=== PATIENT | female | born 1985 | race Caucasian/White ===

== ENCOUNTER 2016-09-02 11:34 | Inpatient (IN) | payer OTHER ==
[~2016-09-02] VITALS: Ht 167.6 cm; Wt 133.7 kg
--- NOTE | 2016-09-03 07:17 | HP ---
ADMIT: 09/02/2016 RM/LOC: 625 [facility] MR#: [id number] [address] [facility] [address] [place], [place] [id number] [address] [place] [address] History and Physical SEX: F AGE: 30 : 1985 DATE OF SERVICE: CHIEF COMPLAINT: Abdominal pain. HISTORY OF PRESENT ILLNESS: A 30-year-old female, who is recently from [place]. She is here at [place], [place], visiting her mother. Leticia developed pain around 4 p.m. on September 01 in the upper abdomen, lower sternal area. She thought initially that her bra was too tight. She had eaten some cake and ice cream with her mother and grandmother. She took her bra off, laid down, and did not seem to help that much, but she is able to get to sleep. She woke up in the middle of night with severe pain in the epigastrium radiating to her back with nausea and vomiting, did not sleep much all night. This morning, she had a loose stool, diarrhea, and a low-grade temp. There has been no blood in the stool, no blood in the vomitus. She presented to the emergency room. Initially, they thought she had cholecystitis; however, ultrasound was negative. CT showed thickening of the pancreas, and her amylase was above 6000. Her AST and ALT are in the 300 range. States she has had occasional problems with indigestion, but nothing this severe. Over the last few months, she has noticed a few episodes with a similar type pain, but not near severe, only lasted 15 or 20 minutes. She has a history of bipolar depression diagnosed this past fall and she has been on Seroquel and the dosage recently was increased. In looking through the [employer], Seroquel has been known to cause pancreatitis. She does not drink any alcohol. She is admitted to the hospital at this time for pain control and IV fluids. PAST MEDICAL HISTORY: Only hospitalization was last year for bipolar depression hospitalized for 5 days. PAST SURGICAL HISTORY: She had no surgeries. SOCIAL HISTORY: She is . Does not use tobacco products, rarely drinks alcohol. 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 ALLERGIES: NONE. CURRENT MEDICATIONS: 1. Hydrochlorothiazide 25 mg daily. 2. Seroquel 200 mg at bedtime. 3. Citalopram 20 mg daily. 4. Clonazepam 0.5 mg one half to one whole tablet b.i.d. p.r.n. for anxiety. 5. Vitamin D 2000 units daily. FAMILY HISTORY: Mother has diabetes, hypertension, and breast cancer. Father has diabetes and hypertension. ADMIT: 09/02/2016 RM/LOC: 625 [facility] MR#: [id number] [address] [place] [id number] [place] [address] History and Physical SEX: F AGE: 30 : 1985 REVIEW OF SYSTEMS: Currently, she is having her menstrual. She has been off the control pill for 2 months. Using condoms for contraception. test in the ER was negative. HEENT: Negative. PULMONARY: Negative. CARDIAC: Negative. GI: Negative other than the current problems. : Negative. ENDOCRINE: Negative. MUSCULOSKELETAL: Negative. PSYCH: Positive for bipolar depression. Rest of review of systems negative. PHYSICAL EXAMINATION: GENERAL: A 30-year-old female, appears her stated age. VITAL SIGNS: Stable. BP is 138/88, respiratory rate is 22, temp 98.4. HENT: Negative. EYES: PERRLA. EOMs intact. THROAT: Moist, not inflamed. NECK: Supple. LUNGS: Clear to auscultation. HEART: Regular rate. No murmur. BREASTS: Not examined. ABDOMEN: Obese. No organomegaly or masses detected. She is slightly tender in epigastrium, very minimal. She is on Dilaudid RESIDENTIAL TREATMENT SPECIALIST pump. Bowel sounds are present. EXTREMITIES: No clubbing, cyanosis, or edema. DIAGNOSTIC IMPRESSION: 1. Pancreatitis. 2. Obesity. 3. History of bipolar depression. PLAN: We will admit to hospital, keep n.p.o., IV fluids, IV RESIDENTIAL TREATMENT SPECIALIST pump. Calvin Eason MD/ amira JOB #: [id number] CC: Calvin Eason, Attending Physician Calvin Eason, Family Physician
--- NOTE | 2016-09-06 12:33 | ER ---
ADMIT: 09/02/2016 RM/LOC: 625 [facility] MR#: [id number] [address] [id number] [address] [place] [address] Emergency Room Report SEX: F AGE: 30 : 1985 DATE: 09/02/2016 ADDENDUM: A 30-year-old white female coming in with abdominal pain. Ultrasound was negative. However, lipase was 6000. We did a CT scan, which is indicative of pancreatitis. She is out of town. I gave it to Dr. Eason, city call. She has an IV. We gave her little pain medications for control. She will be admitted. CONDITION ON DISCHARGE: Fair. Adi Lopez MD/ modl JOB #: [id number] CC: Calvin Eason MD, Attending Physician Calvin Eason MD, Family Physician
[2016-09-06] MEDS ORDERED: KLONOPIN DPS0.5 MG PO (20:07)
[2016-09-06] MEDS ORDERED: VITAMIN D-32000 UNI1 PO (20:07)
[2016-09-06] MEDS ORDERED: HYDROCHLOROTHIA25 MG PO (20:07)
[2016-09-06] MEDS ORDERED: LEXAPRO DPS20 MG PO (20:07)
[2016-09-06] MEDS ORDERED: PEPCID DPS20 MG PO (20:07)
[2016-09-06] MEDS ORDERED: MAALOX DPS30 ML PO (20:08)
[2016-09-06] MEDS ORDERED: TYLENOL DPS325 MG PO (20:08)
[2016-09-06] MEDS ORDERED: NORCO 5-325 TA1 EACH PO (20:08)
[2016-09-06] MEDS ORDERED: MICRO-K DPS10 MEQ PO (20:08)
--- NOTE | 2016-09-11 07:39 | DS ---
ADMIT: 09/02/2016 RM/LOC: 625 [facility] MR#: [id number] [address] [facility] [address] [place] [phone] [address] [place] [address] General Discharge Summary SEX: F AGE: 30 : 1985 ADMISSION DATE: 09/02/2016 DISCHARGE DATE: 09/06/2016 ADMITTING DIAGNOSIS: Acute pancreatitis. DISMISSAL DIAGNOSIS: Acute pancreatitis. COMPLICATING DIAGNOSES: Morbid obesity, history of bipolar depression. CHIEF COMPLAINT AND HISTORY OF PRESENT ILLNESS: A 30-year-old female, who lives in [place]. She is here in [place] at [place], [place], visiting her mother. She developed pain at 4 p.m. on September 01, 2016, in the upper abdomen and lower sternal area. She initially thought it was too tight of clothing, she loosened her clothing, however, the pain did not seem to help much. She woke up in the middle of the night with severe pain in the epigastrium, radiating to her back with nausea and vomiting, did not sleep well all night. On the morning of day of admission, she had loose stool, diarrhea, and low-grade temp. There is no blood in the stool. No blood in the vomitus. She presented to the emergency room, initially thought she had cholecystitis, however, ultrasound was negative for gallstones. CT scan did show thickening of the pancreas and her lipase was above 6000, AST and ALT were in the 300 range. She had no prior history of pancreatitis. She was admitted for acute pancreatitis and treatment of her pain. LABORATORY REPORTS: White count was 10.7, hemoglobin 15.2, and platelets 294,000 on admission. Prior to dismissal, white count was 8.2 and hemoglobin was 13.8. Electrolytes on admission; sodium 143, potassium 3.4, chloride 110, CO2 of 24, BUN 9, creatinine 0.6, glucose 130. Alkaline phosphatase was 67, AST was 110, and ALT 254. Amylase was 46. Lipase 2137. All these were on September 03, 2016. On September 02, 2016, her sodium was 139, potassium 3.4, chloride 105, CO2 of 23, BUN 8, creatinine 0.6, glucose 114. AST 343, ALT 389, serum lipase was 6022, alkaline phosphatase was normal at 86. test in the blood was negative. CT scan showed hepatomegaly with probable fatty infiltrate, peripancreatic and mesenteric inflammatory changes, nonspecific finding, possible pancreatitis, small hiatal hernia. Ultrasound showed no signs of acute cholecystitis. There was hepatomegaly with fatty liver infiltrate, no signs of any gallstones. COURSE IN HOSPITAL: Leticia was administered on IV fluids, Dilaudid INSTRUCTOR NURSE pump, IV Zofran for nausea, Pepcid IV. She is kept n.p.o., placed on subcu Lovenox 40 mg daily for DVT prophylaxis. Her laboratory studies were monitored. Her pain and nausea gradually improved over the next 48 hours. She had previously ADMIT: 09/02/2016 RM/LOC: 625 [facility] MR#: [id number] [address] [place] [phone] [address] [place] [address] General Discharge Summary SEX: F AGE: 30 : 1985 been on Seroquel, and researching this, it has been associated with pancreatitis, so this was discontinued and recommended that she not restart it. She did contact her psychiatrist in [place], who recommended substituting something in one week, but she would wait and consult with the patient after she was dismissed. At time of dismissal, her pain was gone, she was tolerating diet, bland diet without difficulty. Her medications at dismissal were hydrochlorothiazide that she had been on previously 25 mg daily, Lexapro 20 mg daily, Micro-K 10 mEq b.i.d., and vitamin D supplements. Seroquel as mentioned was discontinued, she was prescribed Lortab 325/5 to take p.r.n. for pain should it recur. Pepcid AC 1 tablet b.i.d. She is to see her primary physician in 2 weeks. She is to be on a bland diet. She is to avoid alcohol. Calvin Eason MD/ amira JOB #: [id number] CC: Calvin Eason MD, Attending Physician Calvin Eason MD, Family Physician
== END 2016-09-06 09:15 | disposition home or self-care (01) | DRG 439 ==
LOC: ER 11:34 → 6PED 13:28
PROVIDERS: ADMIT Family Medicine
DX: K85.90 Acute pancreatitis without necrosis or infection, unspecified (principal); Z68.42 Body mass index [BMI] 45.0-49.9, adult; E66.01 Morbid (severe) obesity due to excess calories; E87.6 Hypokalemia; T43.595A Adverse effect of other antipsychotics and neuroleptics, initial encounter; F31.9 Bipolar disorder, unspecified; Z23 Encounter for immunization